=== PATIENT | female | born 1950 | race African-American/Black ===

== ENCOUNTER → 2020-02-19 | Outpatient (CLI) | payer OTHER ==
[~2020-02-19] MED LIST: ACETAMINOPHEN325 M1 PO; APAP650 PO; BENADRYL25 MG PO; BREO ELLIPTA 11 EACH INH; COZAAR 25 MG TA25 M1 PO; FLONASE 0.05%50 MCG NARES; LISINOPRIL20 MG PO; MOBIC15 MG PO; MOBIC7.5 MG PO; NORCO 5-325 TA1 EACH PO; NORVASC10 MG PO; PRAVACHOL 20 MG20 M1 PO; PRAVASTATIN SOD20 MG PO; VENTOLIN HFA 1818 GM INH; VITAMIN D1000 UNI1 PO; VITAMIN D350 MCG PO; XARELTO10 M1 PO
== END ==
LOC: LAB 08:16
PROVIDERS: ATTEND Orthopaedic Surgery
DX: Z01.812 Encounter for preprocedural laboratory examination (principal); Z20.822 Contact with and (suspected) exposure to COVID-19

== ENCOUNTER 2020-02-23 10:12 | Day surgery (SDC) | payer OTHER ==
[2020-02-19 09:41] LABS: URINE BILIRUBIN NEGATIVE (Negative); URINE BLOOD TRACE (Negative); URINE CLARITY CLEAR; URINE COLOR YELLOW; URINE GLUCOSE-RANDOM* NEGATIVE (Negative); URINE KETONES NEGATIVE (Negative); URINE LEUKOCYTES-REFLEX NEGATIVE (Negative); URINE NITRITE-REFLEX NEGATIVE (Negative); URINE PROTEIN (DIPSTICK) NEGATIVE (Negative); URINE SPECIFIC GRAVITY <= 1.005 (1.005-1.035); URINE UROBILINOGEN 0.2 E.U./dl (0.2-1.0)
[2020-02-19 09:52] LABS: HEMATOCRIT 37.4 % (37.0-47.0); HEMOGLOBIN 12.1 gm/dL (12.0-15.0); MCH 26.7 pg (26.0-34.0); MCHC 32.5 g/dL (28.0-37.0); MCV 82.1 fL (80.0-100.0); RBC 4.56 mil/uL (4.20-5.00); RDW 15.8 % (10.5-14.5); WBC 7.6 thou/uL (4.0-11.0)
[2020-02-19 10:03] LABS: ALBUMIN 3.9 g/dL (3.4-5.0); CALCIUM 10.1 mg/dL (8.5-10.1); CREATININE 1.3 mg/dL (0.6-1.0); POTASSIUM 4.4 mmol/L (3.5-5.1)
[2020-02-19 10:06] LABS: PROTIME 10.5 Seconds (9.3-11.4)
--- NOTE | 2020-02-19 10:29 | EKG ---
[address] [place] [address] ELECTROCARDIOGRAM REPORT Name: YUMIKO GIFFORD Room #: PRE [facility] M.R.#: [id number] Admission: Attend Phys: Vern Correa MD Discharge: Date of : 52 Report #: [id number] [facility] Test Date: 2020-02-19 Test Time: 09:19:39 Pat Name: YUMIKO IGFFORD Department: Room: Gender: F Cash Controller: ABIMAEL : 1950 Requested By: Vern Correa Order Number: [id number] MD: Rachid Donis Measurements Intervals Holcomb Rate: 95 P: 30 MN: 149 QRS: 2 QRSD: 78 T: 52 QT: 352 QTc: 443 Interpretive Statements Sinus rhythm Compared to ECG 09/02/2012 09:53:55 Sinus tachycardia no longer present Left ventricular hypertrophy no longer present T-wave abnormality no longer present Electronically Signed On 02-19-2020 10:29:29 [employer] by Rachid Donis [email or web address] <ELECTRONICALLY SIGNED> By: Rachid Donis MD, [facility] 02/19/20 1029 0919 8 Rachid Donis MD, FACC /EPI
[~2020-02-23] VITALS: Ht 167.6 cm; Wt 85.7 kg
[2020-02-23 11:03] VITALS: BP 137/83
[2020-02-23 17:02] VITALS: BP 125/53
--- NOTE | 2020-02-23 18:07 | NUR ---
Pt transferred to unit from recovery room approx 1640. Dressing c/d/i. A&ox4. Denies pain. IVF infusing. Ice pack in place. Pt feeling sleepy and drowsy. Call light within reach. Fall precautions in place. Will continue to monitor.
[2020-02-23 20:13] VITALS: BP 133/75
--- NOTE | 2020-02-24 04:01 | NUR ---
RECIEVED CARE OF THIS PATIENT AT 1900. PATIENT ALERT AND OIRNETED X4. LUIS DRESSING ON L HIP D/I. DENIES PAIN EXCEPT WHEN MOVING. UP TO BSC SEVERAL TIMES WITHOUT BEING ABLE TO URINATE. DID BLADDER SCAN AND THE RESULT WAS 197. SINCE IT WAS 10 HOURS AND PATIENT WAS UNCOMFORTABLE, PATIENT WAS ST CATHED. RECIEVED 325 OUT. PATIENT STATED FELT BETTER. HAD IV IN LAC. CATH OF IV BECAME BENT AND IV WAS REMOVED. WILL REPLACE. SLEPT LITTLE THIS SHIFT.
[2020-02-24 04:15] VITALS: BP 137/74
[2020-02-24 05:52] LABS: HEMATOCRIT 33.3 % (37.0-47.0); HEMOGLOBIN 10.5 gm/dL (12.0-15.0); MCHC 31.6 g/dL (28.0-37.0); MCV 82.1 fL (80.0-100.0); RBC 4.05 mil/uL (4.20-5.00); WBC 13.6 thou/uL (4.0-11.0)
[2020-02-24 08:24] VITALS: BP 146/77
--- NOTE | 2020-02-24 09:48 | NUR ---
ASSESSMENT: CM REVIEWED CHART. PT IS S/P LEFT HIP REPLACEMENT. PT REPORTS THAT SHE LIVES IN A HOUSE WITH HER . PT REPORTS ABOUT 3 STEPS WITH HANDRAILS TO ENTER AND NO STEPS ONCE INSIDE. PT REPORTS HAVING A CANE AND A WALKER FOR AMBULATION. PT REPORTS HAVING A GRAB BAR AND A SHOWER CHAIR. PT REPORTS HAVING [facility] IN THE PAST BUT PREFERS TO GO TO OUTPATIENT THERAPY HERE AT [facility]. CM DISCUSSED ROLE. PT DOES NOT ANTICIPATE HAVING ANY NEEDS FROM CM. PT WILL WORK WITH THERAPY TODAY, CM WILL CONTINUE TO FOLLOW.
[2020-02-24 10:26] VITALS: BP 146/77
[2020-02-24 12:38] VITALS: BP 146/77
--- NOTE | 2020-02-24 12:48 | O ---
[facility] [address] [place] [address] OPERATIVE REPORT Name: YUMIKO GIFFORD Room #: 437-P [facility] M.R.#: [id number] Admission: 02/23/20 Attend Phys: Vern Correa MD Discharge: Date of : 52 Report #: [id number] THIS REPORT FOR: cc: DUSTIN SHEA MD Physician not on staff Vern Correa MD ~ DATE OF SERVICE: 02/23/2020 PREOPERATIVE DIAGNOSIS: Left hip osteoarthritis. POSTOPERATIVE DIAGNOSIS: Left hip osteoarthritis. PROCEDURE: Left total hip arthroplasty. SURGEON: Vern Correa M.D. INSURANCE RATER: Irlanda Coppola PA-C. INDICATIONS FOR INSURANCE RATER: Throughout the case, extensive retraction and manipulation of the hip including dislocation and reduction was required. This was afforded to me by my hotel assistant general manager. ANESTHESIA: LMA. IMPLANTS: [employer] size 13 high offset Synergy press-fit stem, size 54 R3 acetabular cup with one acetabular screw, size 36, -3 cobalt chrome head and a single Accord cable for prophylactic femur fixation. ESTIMATED BLOOD LOSS: 50 mL. COMPLICATIONS: None. SPECIMENS: None. CONDITION UPON LEAVING THE OPERATING ROOM: Stable. INDICATIONS FOR PROCEDURE: The patient is a 69-year-old female with severe left hip osteoarthritis. She had failed conservative measures to this and after discussion with her, she elected for left total hip arthroplasty. DESCRIPTION OF PROCEDURE: Risks, benefits, alternatives, complications were discussed in detail with the patient including but not limited to risk of anesthesia, risk of damage to nerves, arteries, blood vessels, risk for infection, bleeding, risk for continued hip pain, leg length discrepancy, instability and need for reoperation. Informed consent was obtained from the [facility] [place] [address] OPERATIVE REPORT Name: YUMIKO GIFFORD Room #: 437-P [facility] M.R.#: [id number] Admission: 02/23/20 Attend Phys: Vern Correa MD Discharge: Date of : 52 Report #: [id number] patient. Left hip was appropriately marked in the preoperative holding area. IV Ancef was given for preoperative antibiotics. She was brought to the operating room and placed in the supine position on the operating room table. General anesthesia was induced without complication. She was placed in the right lateral decubitus position with the left hip uppermost. Left hip and lower extremity were prepped and draped in normal sterile fashion. Timeout was performed properly identifying the patient and procedure as well as the instrumentation and implants. All in the operating room were in agreement. Standard posterior approach to the hip was made with 10 blade through the skin. Dissection was taken down sharply to the fascia. Deep flaps were developed medially and laterally. A fresh #10 blade was used to make a fascial incision. This was taken proximally and distally with curved Syed scissor. Charnley retractor was placed. Trochanteric bursa was taken down with Bovie cautery. Piriformis tendon was identified, tagged and taken down with Bovie. Short external rotators were also taken down with Bovie cautery. Capsulotomy was made and capsule ends were tagged for later repair. Hip was dislocated and there was extensive osteoarthritic change in the femoral head. A femoral neck cut was made 1 cm proximal to lesser trochanter based on preoperative templating. Femoral head was removed. Deep acetabular retractors were placed. Labrum was removed sharply. Pulvinar was removed with Bovie cautery. Acetabulum was then sequentially reamed up to a size 54, at which point, there was excellent bleeding cancellous bone. A size 53 trial cup was placed, found to have a good fit. Final size 54 R3 acetabular cup was placed and seated. One acetabular screw was placed for backup fixation and polyethylene liner for a 36 head was placed. Attention was then turned to the femur. An Accord cerclage cable was placed proximal to the lesser trochanter for prophylactic femur fixation. The femur was then reamed and broached up to a size 13, at which point, the size 13 broach was stable, was trialed with a high offset neck and a 36, +0 head. Hip was reduced, taken through range of motion, found to be stable, found to be somewhat long on the left compared to the right. Hip was dislocated and we trialed with a 36, -3 head. Hip was reduced, taken through range of motion, found to be stable, found to have equal leg lengths. Hip was dislocated and broach was removed. Final size 13 high offset Synergy press-fit stem was placed. This was trialed with a 36, -3 head. Hip was reduced, taken through range of motion, found to be stable, found to have equal leg lengths. Hip was dislocated one last time and a final size 36, -3 cobalt chrome head was placed. Hip was reduced, taken through range of motion, found to be stable, found to have equal leg lengths. A periarticular injection consisting of morphine, ropivacaine, epinephrine and Toradol was placed around the hip joint capsule. A gram of vancomycin was placed deep in the joint. The fascia was closed with 0 Vicryl, skin was closed with 2-0 Vicryl, skin staple and a LUIS dressing was [address] [address] OPERATIVE REPORT Name: YUMIKO GIFFORD Room #: 437-P [facility]#: [id number] Admission: 02/23/20 Attend Phys: Vern Correa MD Discharge: Date of : 52 Report #: [id number] applied. The patient tolerated this procedure well and went to the recovery room under care of anesthesia postoperatively. <ELECTRONICALLY SIGNED> By: Vern Correa MD 02/24/20 1248 1524 1559 Vern Correa MD /nt
[2020-02-24 13:59] VITALS: BP 146/77
== END 2020-02-24 13:45 | disposition home or self-care (01) ==
LOC: OR 10:12 → PRE 12:21 → EDSTATUS 13:06 → OR 13:08 → EDSTATUS 15:55 → 4S 16:41 → OR 02-24 13:45
PROVIDERS: ATTEND Orthopaedic Surgery
DX: M16.12 Unilateral primary osteoarthritis, left hip (principal); M25.552 Pain in left hip; I10 Essential (primary) hypertension; E78.00 Pure hypercholesterolemia, unspecified; J45.909 Unspecified asthma, uncomplicated; Z98.890 Other specified postprocedural states; Z79.899 Other long term (current) drug therapy; Z98.51 Tubal ligation status; Z85.41 Personal history of malignant neoplasm of cervix uteri; Z90.710 Acquired absence of both cervix and uterus
CPT/HCPCS: 10102; 50010; 50101; 50382; 50414; 51412; 53000; 53078; 53367; 56524; 56528; 56530; 57095; 57103; 57496; 62110; 62900; 70005